=== PATIENT | female | born 1955 | race Two or more races ===

== ENCOUNTER 2016-08-17 10:40 | Emergency (ER) | payer MEDICAID ==
[2016-08-17 13:13] VITALS: BP 152/87
== END 2016-08-17 13:13 | disposition home or self-care (01) ==
LOC: ED 10:40
DX: S82.62XA Displaced fracture of lateral malleolus of left fibula, initial encounter for closed fracture (principal); S80.02XA Contusion of left knee, initial encounter; I10 Essential (primary) hypertension; E78.00 Pure hypercholesterolemia, unspecified; Z88.0 Allergy status to penicillin; W01.0XXA Fall on same level from slipping, tripping and stumbling without subsequent striking against object, initial encounter; Y93.89 Activity, other specified; Y99.8 Other external cause status; Y92.89 Other specified places as the place of occurrence of the external cause
CPT/HCPCS: J3010; Q0092

== ENCOUNTER 2017-05-14 05:48 | Inpatient (IN) | payer MEDICAID ==
[~2017-05-14] VITALS: Ht 177.8 cm; Wt 93.1 kg
[2017-05-14 05:53] VITALS: Ht 177.8 cm; Wt 93.1 kg
[2017-05-14 06:38] LABS: BASOPHIL % 0.4 % (0-2); PLATELET COUNT 352 x10^3mcL (130-400); RED CELL DISTRIBUTION WIDTH 13.7 % (11.5-14.5)
[2017-05-14 06:44] LABS: CALCIUM 8.5 mg/dL (8.5-10.1); CARBON DIOXIDE 27.8 mmol/L (21-32); CHLORIDE SERUM 105 mmol/L (98-107); CREATININE SERUM 0.8 mg/dL (0.6-1.0); GFR1 > 60 mL/min; GLUCOSE SERUM 108 mg/dL (74-106); POTASSIUM SERUM 3.7 mmol/L (3.5-5.1); SODIUM SERUM 141 mmol/L (136-145)
[2017-05-14 06:48] LABS: ALBUMIN 3.5 g/dL (3.4-5.0); ALKALINE PHOSPHATASE 77 U/L (46-116); ALT/SGPT 29 U/L (14-59); AST/SGOT 23 U/L (15-37); BILIRUBIN TOTAL 0.36 mg/dL (0.20-1.00); TOTAL PROTEIN, SERUM 7.2 g/dL (6.4-8.2)
[2017-05-14] MEDS ORDERED: METOPROLOL SUCC50 M2 PO (07:15)
[2017-05-14] MEDS ORDERED: AMLODIPINE BESYL5 M2 PO (09:01)
[2017-05-14] MEDS ORDERED: LEVOFLOXACIN500 M1 PO (09:01)
[2017-05-14 09:04] LABS: microscopic required? NO
[2017-05-14 09:11] LABS: urine erythrocyte NEGATIVE (NEGATIVE)
[2017-05-14 09:20] LABS: AMPHETAMINE QUAL UR NONE DETECTED (NEG <=1000)
[2017-05-14 09:56] LABS: FREE T4 0.93 ng/dL (0.76-1.46); FREE THYROXINE INDEX 2.7 ug/dL (1.4-4.5); T4(THYROXINE) 8.8 ug/dL (4.7-13.3)
[2017-05-14 10:26] LABS: T3 TOTAL 1.42 ng/mL
[2017-05-14 12:05] LABS: MAGNESIUM 2.1 mg/dL (1.8-2.4); PHOSPHOROUS 3.3 mg/dL (2.5-4.9)
[2017-05-14 12:07] LABS: CHOLESTEROL/HDL RATIO 5.6
[2017-05-14 12:13] VITALS: BP 155/77
[2017-05-14 12:57] VITALS: BP 155/77
[2017-05-14 17:24] VITALS: BP 134/65
[2017-05-14 21:20] VITALS: BP 139/63
[2017-05-15 06:06] VITALS: BP 116/65
[2017-05-15 06:26] LABS: CARBON DIOXIDE 28.4 mmol/L (21-32); CHLORIDE SERUM 109 mmol/L (98-107); CREATININE SERUM 0.9 mg/dL (0.6-1.0); GFR1 > 60 mL/min; GLUCOSE SERUM 94 mg/dL (74-106); POTASSIUM SERUM 4.1 mmol/L (3.5-5.1); SODIUM SERUM 144 mmol/L (136-145)
[2017-05-15 06:41] LABS: BASOPHIL % 0.4 % (0-2); PLATELET COUNT 331 x10^3mcL (130-400)
[2017-05-15 08:00] VITALS: BP 133/67
[2017-05-15] MEDS ORDERED: LAC PO (09:20)
[2017-05-15] MEDS ORDERED: FLE10 PO (09:42)
[2017-05-15] MEDS ORDERED: STOOL SOFTENER50 MG PO (09:45)
[2017-05-15 12:13] VITALS: BP 132/76
[2017-05-15] MEDS ORDERED: LIPI10 PO (12:24)
[2017-05-15 13:23] VITALS: BP 132/76
== END 2017-05-15 14:02 | disposition home or self-care (01) | DRG 203 ==
LOC: EDBD 05:48 → ED 05:48 → DU 11:01
PROVIDERS: Emergency Medicine; Family Medicine
DX: M94.0 Chondrocostal junction syndrome [Tietze] (principal); I10 Essential (primary) hypertension; R30.0 Dysuria; R73.03 Prediabetes; E78.5 Hyperlipidemia, unspecified; Z68.29 Body mass index [BMI] 29.0-29.9, adult
CPT/HCPCS: 83880; 84439; J2405; J3010; J7030; Q0092